=== PATIENT | male | born 1960 | race Caucasian/White ===

== ENCOUNTER 2018-12-10 06:48 | Day surgery (SDC) | payer OTHER ==
[~2018-12-10] VITALS: Ht 165.1 cm; Wt 117.9 kg
[2018-12-10 07:56] VITALS: Ht 165.1 cm; Wt 117.9 kg
[2018-12-10] MEDS ORDERED: ATOR10TA65 PO (08:16)
[2018-12-10] MEDS ORDERED: MULT-140 PO (08:16)
[2018-12-10] MEDS ORDERED: ASPI-903 PO (08:16)
[2018-12-10] MEDS ORDERED: GLIP10TA14 PO (08:16)
[2018-12-10] MEDS ORDERED: PIOG30TA71 PO (08:16)
[2018-12-10] MEDS ORDERED: MTF1000T PO (08:16)
[2018-12-10] MEDS ORDERED: CHLO25TA2 PO (08:16)
[2018-12-10] MEDS ORDERED: AMLO5TAB4 PO (08:16)
[2018-12-10] MEDS ORDERED: GLUC-181 PO (08:16)
--- NOTE | 2018-12-10 08:21 | PREAC ---
Date/Time of Note Date/Time of Note DATE: 12/10/18 TIME: 08:20 Anesthesia Eval and Record Evaluation Time Pre-Procedure Interview DATE: 12/10/18 TIME: 08:20 Age 58 Sex male NPO: 8 hrs Preoperative diagnosis fecal abnormalities Planned procedure egd and colonoscopy Past Medical History Past Medical History: Includes Cardio: HTN, Dyslipidemia Endo: Diabetes GI: Morbid obesity Surgery & Anesthesia Issues No known issue Meds Anticoagulation: No Beta Julian within 24 hr: No Reason Beta Julian not given: Pt. not on B-Julian Reported Medications Pioglitazone Hcl* (Pioglitazone Hcl*) 30 Mg Tablet, 30 MG PO DAILY, TAB 12/10/18 Amlodipine Besylate* (Norvasc*) 5 Mg Tablet, 5 MG PO DAILY, TAB 12/10/18 Chlorthalidone* (Chlorthalidone*) 25 Mg Tablet, 25 MG PO DAILY, TAB 12/10/18 Metformin* (Glucophage*) 1,000 Mg Tablet, 1000 MG PO DAILY, #30 TAB 12/10/18 Glipizide* (Glipizide*) 10 Mg Tablet, 10 MG PO DAILY, TAB 12/10/18 Glucosam/Chond/Hyalu/Cf Borate (Move Free Joint Health Tablet) 1 Each Tablet, 1 EACH PO, TAB 12/10/18 Multivits-Minerals/Fa/Lycopene (ONE DAILY FOR MEN TABLET) 1 Each Tablet, 1 EACH PO, TAB 12/10/18 Aspirin* (Aspirin* Chew) 81 Mg Tab.chew, 81 MG PO DAILY, TAB.CHEW 12/10/18 Atorvastatin Calcium (Atorvastatin Calcium) 10 Mg Tablet, 10 MG PO QHS, #30 TAB 12/10/18 Meds reviewed: Yes Allergies Coded Allergies: No Known Allergy (Unverified , 12/10/18) Allergies Reviewed: Yes Labs/Studies Labs Reviewed: Reviewed by anesthesiologist test: N/A Pre-procedure Exam Airway: Adequate mouth opening, Adequate thyromental dist Mallampati: Mallampati III Teeth: Normal Lung: Normal Heart: Normal ASA Physical Status ASA physical status: 3 Emergency: None Pre-operative Attestations Prior to commencing anesthesia and surgery, the patient was re-evaluated, there was verification of: *The patient's identity *The results of appropriate recent lab work and preoperative vital signs *The above evaluation not changing prior to induction *Anesthetic plan, risk benefits, alternative and complications discussed with patient/family; questions answered; patient/family understands, accepts and wishes to proceed. QUIQUE MIR DO Dec 10, 2018 08:21
[2018-12-10 08:23] VITALS: BP 139/72; PULSE 74; RESP 18
[2018-12-10] MEDS ORDERED: PROPOFOL 40 ML ONE (08:26)
[2018-12-10] MEDS ORDERED: MIDAZOLAM 1 MG/ML 2 ML INJ ONE (08:26)
[2018-12-10] MEDS ORDERED: ETOMIDATE 20 MG INJ ONE (08:26)
[2018-12-10] MEDS ORDERED: LIDOCAINE 2% (SDV) 5 ML INJ ONE (08:26)
[2018-12-10] MEDS ORDERED: PROPOFOL 200 MG INJ ONE (08:26)
[2018-12-10] MEDS ORDERED: LIDOCAINE 4% SOLUTION 50 ML BTL ONE (08:26)
[2018-12-10] MEDS ORDERED: FENTAnyl 50 MCG/ML VIAL ONE (08:26)
[2018-12-10 09:32] VITALS: BP 143/67; PULSE 73; RESP 18
--- NOTE | 2018-12-10 11:34 | PAC ---
Date/Time of Note Date/Time of Note DATE: 12/10/18 TIME: 11:34 Post-Anesthesia Notes Post-Anesthesia Note Last documented vital signs Vital Signs Date Temp Pulse Resp B/P (MAP) Pulse Ox O2 O2 Flow FiO2 Time Delivery Rate 12/10/18 73 18 143/67 94 Room Air 09:32 (92) 12/10/18 98.4 08:23 Activity: WNL Respiratory function: WNL Cardiovascular function: WNL Mental status: Baseline Pain reasonably controlled: Yes Hydration appropriate: Yes Nausea/Vomiting absent: Yes QUIQUE MIR DO Dec 10, 2018 11:34
== END 2018-12-10 11:14 | disposition home or self-care (01) ==
LOC: GIL 06:48
PROVIDERS: ATTEND Internal Medicine Gastroenterology
DX: R19.5 Other fecal abnormalities (principal); K64.4 Residual hemorrhoidal skin tags; K22.10 Ulcer of esophagus without bleeding; K64.8 Other hemorrhoids; E11.9 Type 2 diabetes mellitus without complications; I10 Essential (primary) hypertension; E78.5 Hyperlipidemia, unspecified; Z79.82 Long term (current) use of aspirin; Z79.84 Long term (current) use of oral hypoglycemic drugs
CPT/HCPCS: 43239; 45378; 82962; 88305; 88312; 88313; J2250; J3010; Z7610